=== PATIENT | female | born 1950 | race Two or more races ===

== ENCOUNTER 2023-06-24 12:13 | Inpatient (IN) | payer OTHER ==
[~2023-06-24] VITALS: Ht 152.4 cm; Wt 52.2 kg
[2023-06-24 16:02] LABS: HEMOGLOBIN 11.7 g/dL (12.0-15.00); MEAN CORPUSCULAR HEMOGLOBIN 29.4 pg (27.00-32.0); MEAN CORPUSCULAR HGB CONC 33.4 g/dl (32.0-36.0); PLATELET COUNT 364 K/uL (150-450); RED BLOOD COUNT 3.97 M/uL (4.00-6.00); RED CELL DISTRIBUTION WIDTH 13.2 % (11.5-14.5)
[2023-06-24 16:26] LABS: ALBUMIN 2.9 gm/dL (3.4-5.0); BILIRUBIN TOTAL 1.23 mg/dL (0.3-1.2); CALCIUM 8.7 mg/dL (8.5-10.1); CREATININE SERUM 1.46 mg/dL (0.55-1.02); GFR 35.12; GLOBULINA 5.4 G/DL (2.4-3.5); POTASSIUM 5.33 mEq/L (3.5-5.1); TOTAL PROTEIN 8.3 gm/dL (6.4-8.2)
[2023-06-24 16:54] LABS: PH,URINE 5.5 (5.0-8.0); URINE APPEARANCE Turbid; URINE BILIRRUBIN Small (NEGATIVE); URINE BLOOD Large; URINE COLOR Dark Yellow; URINE GLUCOSE Negative (NEGATIVE); URINE LEUKOCYTE Large; URINE NITRATE Positive
[2023-06-24 16:55] LABS: URINE EPITHELIAL CELLS 66.6 uL (0.0-38.8); URINE RBC 151.5 uL (0.0-20.8)
[2023-06-24 17:41] LABS: URINE BACTERIA > 9821.5 uL (0.0-1933); URINE PROTEIN 300 (NEGATIVE); URINE WBC > 5548.3 uL (0.0-23.2)
[2023-06-24 17:44] LABS: URINE YEAST NEGATIVE /hpf
[2023-06-24 18:37] LABS: INR 1.34; PARTIAL THROMBOPLASTIN TIME 31.5 SECONDS (22.0-34.0); PROTHROMBIN TIME 13.8 SECONDS (9.0-11.5)
[2023-06-25 01:12] LABS: MAGNESIUM 2.5 mg/dL (1.8-2.4); PHOSPHOROUS 3.6 mg/dL (2.5-4.9)
[2023-06-25 09:14] LABS: CHOL HDL RATIO 6.5 (0-5.0)
[2023-06-26 06:52] LABS: HEMATOCRIT 30.4 % (36.0-45.00); HEMOGLOBIN 10.2 g/dL (12.0-15.00); MEAN CELL VOLUME 87.5 fL (80.00-100.00); MEAN CORPUSCULAR HEMOGLOBIN 29.4 pg (27.00-32.0); MEAN CORPUSCULAR HGB CONC 33.6 g/dl (32.0-36.0); PLATELET COUNT 314 K/uL (150-450); RED BLOOD COUNT 3.47 M/uL (4.00-6.00); RED CELL DISTRIBUTION WIDTH 12.8 % (11.5-14.5)
[2023-06-26 07:50] LABS: ALBUMIN 2.1 gm/dL (3.4-5.0); BILIRUBIN TOTAL 0.57 mg/dL (0.3-1.2); CALCIUM 7.9 mg/dL (8.5-10.1); GFR 54.35; GLOBULINA 3.4 G/DL (2.4-3.5); MAGNESIUM 2.5 mg/dL (1.8-2.4); POTASSIUM 5.59 mEq/L (3.5-5.1); TOTAL PROTEIN 5.5 gm/dL (6.4-8.2)
[2023-06-26 13:54] LABS: PHOSPHOKINASE CREATININE 51 U/L (26-192)
[2023-06-26 13:59] LABS: CKMB < 1.0 NG/ML (0.5-3.6)
[2023-06-26 22:22] LABS: ABG PO2 120.8 mmHg (80-100); ABG pCO2 29.1 mmHg (35-45); BASE EXCESS -1.6 mmol/l; BICARBONATE 20.7 mmol/l (23-25); SaO2 98.9 %; Tco2 21.6 mmol/l; allen test SATISFACTORY; o2 36 %; puncture site RADIAL LEFT
[2023-06-27 00:30] LABS: CKMB 1.3 NG/ML (0.5-3.6)
[2023-06-27 06:19] LABS: PH,URINE 6.5 (5.0-8.0); URINE APPEARANCE Clear; URINE BILIRRUBIN Negative (NEGATIVE); URINE BLOOD Negative; URINE COLOR Yellow; URINE GLUCOSE Negative (NEGATIVE); URINE LEUKOCYTE Negative; URINE NITRATE Negative; URINE PROTEIN Trace (NEGATIVE); URINE UROBILINOGEN 0.2 E.U./dl
[2023-06-27 06:23] LABS: URINE EPITHELIAL CELLS 3.5 uL (0.0-38.8); URINE RBC 25.4 uL (0.0-20.8); URINE WBC 20.9 uL (0.0-23.2)
[2023-06-27 06:41] LABS: URINE BACTERIA 2.5 uL (0.0-1933)
[2023-06-27 07:52] LABS: CKMB 1.8 NG/ML (0.5-3.6)
[2023-06-29 07:17] LABS: ALBUMIN 2.3 gm/dL (3.4-5.0); BILIRUBIN TOTAL 0.39 mg/dL (0.3-1.2); CALCIUM 8.2 mg/dL (8.5-10.1); CREATININE SERUM 0.72 mg/dL (0.55-1.02); GFR 79.18; GLOBULINA 3.5 G/DL (2.4-3.5); MAGNESIUM 1.8 mg/dL (1.8-2.4); PHOSPHOROUS 3.6 mg/dL (2.5-4.9); POTASSIUM 4.54 mEq/L (3.5-5.1); TOTAL PROTEIN 5.8 gm/dL (6.4-8.2)
[2023-06-29 09:13] LABS: HEMATOCRIT 29.4 % (36.0-45.00); MEAN CELL VOLUME 86.7 fL (80.00-100.00); MEAN CORPUSCULAR HEMOGLOBIN 29.4 pg (27.00-32.0); MEAN CORPUSCULAR HGB CONC 33.9 g/dl (32.0-36.0); PLATELET COUNT 405 K/uL (150-450); RED BLOOD COUNT 3.39 M/uL (4.00-6.00); RED CELL DISTRIBUTION WIDTH 13.4 % (11.5-14.5)
== END 2023-07-01 17:18 | disposition home or self-care (01) | DRG 872 ==
LOC: ER 12:13 → MEDJ 21:51
PROVIDERS: General Practice; Internal Medicine Infectious Disease; ADMIT Internal Medicine; ATTEND Internal Medicine
PROC: B24BZZZ Ultrasonography of Heart with Aorta (ICD-10-PCS; principal; 2023-06-26)
DX: A41.9 Sepsis, unspecified organism (principal); N39.0 Urinary tract infection, site not specified; N17.9 Acute kidney failure, unspecified; E87.5 Hyperkalemia

== ENCOUNTER 2024-09-10 00:42 | Emergency (ER) | payer OTHER ==
[~2024-09-10] VITALS: Ht 154.9 cm; Wt 51.3 kg
[2024-09-10] MEDS ORDERED: CIPROFLOXACIN500 MG PO (00:58)
[2024-09-10] MEDS ORDERED: PROMETHAZINE HCL 25 MG/ML AMPUL IM STA (02:41)
[2024-09-10] MEDS ORDERED: PROMETHAZINE HCL 25 MG/ML AMPUL ONE (02:46)
== END 2024-09-10 02:54 | disposition home or self-care (01) ==
LOC: ER 00:42
DX: N39.0 Urinary tract infection, site not specified (principal)